=== PATIENT | female | born 1970 | race American Indian/Alaskan Native ===

== ENCOUNTER 2018-06-25 12:20 | Emergency (ER) | payer OTHER ==
[2018-06-25 12:31] VITALS: BMI 27.4
[2018-06-25 12:39] VITALS: RESP 18
--- NOTE | 2018-06-25 13:12 | ED PDOC ---
Arrival/HPI - General Chief Complaint: Flu-like Symptoms Time Seen by Provider: 06/25/18 12:39 Historian: Patient - History of Present Illness Narrative History of Present Illness (Text): 06/25/18 13:55 47yr old female presents today with cough, nasal congestion, bodyaches, fevers/chills, sore throat x 2 days. pt states cough is productive with green/yellow sputum. pt denies cp or sob. no dizziness or weakness. no abdominal pain. no vomiting/diarrhea. no medications have been taken at home. no other complaints. Past Medical History - Provider Review Nursing Documentation Reviewed: Yes - Travel History Have you recently traveled outside [place] w/in the past 3 mons?: No - Pulmonary Hx Asthma: Yes - Psychiatric Hx Substance Use: No - Surgical History Other/Comment: partial hysterectomy - Anesthesia Hx Anesthesia: Yes Family/Social History - Physician Review Nursing Documentation Reviewed: Yes Family/Social History: Unknown Family HX Smoking Status: Never Smoked Hx Alcohol Use: Yes Frequency of alcohol use: Socially Hx Substance Use: No Allergies/Home Meds Allergies/Adverse Reactions: Allergies shellfish derived Allergy (Verified 06/25/18 12:31) ANAPHYLAXIS Review of Systems - Review of Systems Constitutional: Fatigue, Fevers, Other (bodyaches) ENT: Sore Throat, Sinus Congestion Respiratory: Cough, Sputum. absent: SOB Cardiovascular: absent: Chest Pain, Palpitations Gastrointestinal: absent: Abdominal Pain, Nausea, Vomiting Genitourinary Female: absent: Dysuria, Frequency Musculoskeletal: absent: Arthralgias, Back Pain Skin: absent: Rash, Pruritis Neurological: absent: Headache, Dizziness Psychiatric: absent: Anxiety, Depression, Suicidal Ideation Physical Exam Vital Signs Reviewed: Yes Vital Signs Temp Pulse Resp BP Pulse Ox 06/25/18 12:41 118/85 06/25/18 12:31 98.2 F 102 H 18 99 Temperature: Afebrile Blood Pressure: Normal Pulse: Tachycardic Respiratory Rate: Normal Appearance: Positive for: Well-Appearing, Non-Toxic, Comfortable Pain Distress: None Mental Status: Positive for: Alert and Oriented X 3 - Systems Exam Head: Present: Atraumatic Pupils: Present: PERRL Extroacular Muscles: Present: EOMI Conjunctiva: Present: Normal Ears: Present: Normal, NORMAL TM Mouth: Present: Moist Mucous Membranes, Normal Lips, Normal Tounge. No: Drooling, Trismus Pharnyx: Present: Normal. No: ERYTHEMA, EXUDATE, TONSILS ENLARGED, Peritonsilar Swelling, Uvular Deviation, Muffled/Hoarse Voice Nose (External): Present: Atraumatic Nose (Internal): Present: Normal Inspection Neck: Present: Normal Range of Motion, Trachea Midline. No: Lymphadenopathy Cardiovascular: Present: Regular Rate and Rhythm, Normal S1, S2. No: Murmurs Abdomen: No: Tenderness, Distention, Peritoneal Signs, Rebound, Guarding Upper Extremity: Present: Normal ROM Lower Extremity: Present: Normal ROM Neurological: Present: GCS=15, Speech Normal Skin: Present: Warm, Dry, Normal Color. No: Rashes Psychiatric: Present: Alert, Oriented x 3 Medical Decision Making ED Course and Treatment: 06/25/18 13:57 Patient is nontoxic well-appearing. C/o flu-like symptoms. tylenol PO rapid flu; negative rapid strep; negative cxr; left small pleural effusion Tamiflu po zithromax po Patient reassessment: Pt feeling better; vitals stable. discussed all results with patient. 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 I advised follow up with primary care physician within the next 2 days. I advi sed increase fluids and return if symptoms worsen persist or if new symptoms develop Patient verbalizes understanding of discharge instructions and need for immediate followup. all aspects of this case were discussed the attending of record. IMPRESSION; Flu like symptoms, pleural effusion Motrin one tablet every 6 hours as needed for pain/fever reduction Tamiflu: 1 capsule twice daily x 5 days zithromax daily x 4 days. Increase fluids Followup with primary care physician the next 2 days regarding pleural effusion on chest xray Return if symptoms worsen persist or if new symptoms develop: Continued high fevers, dizziness, weakness, chest pain or shortness of breath vomiting/diarrhea, or if any other concerning symptoms develop 06/25/18 15:00 Reassessment Condition: Re-examined, Improved - RAD Interpretation Radiology Orders: 06/25/18 12:53 CHEST TWO VIEWS (PA/LAT) [RAD] Stat - Medication Orders Current Medication Orders: Acetaminophen (Tylenol 325mg Tab) 975 mg PO STAT STA Stop: 06/25/18 12:54 Disposition/Present on Arrival - Present on Arrival Any Indicators Present on Arrival: No History of DVT/PE: No History of Uncontrolled Diabetes: No Urinary Catheter: No History of Decub. Ulcer: No History Surgical Site Infection Following: None - Disposition Have Diagnosis and Disposition been Completed?: Yes Diagnosis: Flu-like symptoms, Pleural effusion Disposition: HOME/ ROUTINE Disposition Time: 13:59 Patient Plan: Discharge Patient Problems: Current Active Problems Problem Status Onset Flu-like symptoms Acute Condition: GOOD Discharge Instructions (ExitCare): Pleural Effusion (DC), Cough, Adult (DC) Additional Instructions: Motrin one tablet every 6 hours as needed for pain/fever reduction Tamiflu: 1 capsule twice daily x 5 days zithromax daily x 4 days. Increase fluids Followup with primary care physician the next 2 days regarding pleural effusion on chest xray Return if symptoms worsen persist or if new symptoms develop: Continued high fevers, dizziness, weakness, chest pain or shortness of breath vomiting/diarrhea, or if any other concerning symptoms develop Prescriptions: Azithromycin [Zithromax] 250 mg PO DAILY #4 tab Fluticasone Nasal [Flonase] 2 spr NS DAILY #1 spr Ibuprofen [Motrin] 600 mg PO Q6H PRN #20 tab PRN Reason: pain/fever reduction Oseltamivir Cap [Tamiflu] 75 mg PO BID #10 cap Referrals: Taryn Arechiga MD [Primary Care Provider] - Follow up with primary Frankie Barbosa MD [Staff Provider] - Follow up with primary Forms: [facility] (Thai), WORK NOTE
[2018-06-25 13:49] LABS: INFLUENZA A B NEGATIVE FOR FLU A/B (NEGATIVE)
--- NOTE | 2018-06-25 14:44 | RAD ---
Date of service: 06/25/2018 HISTORY: cough/fever COMPARISON: No prior. TECHNIQUE: Chest PA and lateral views FINDINGS: LUNGS: No active pulmonary disease. PLEURA: Minimal left pleural effusion with blunting of the costophrenic angle CARDIOVASCULAR: No aortic atherosclerotic calcification present. Normal cardiac size. No pulmonary vascular congestion. OSSEOUS STRUCTURES: No significant abnormalities. VISUALIZED UPPER ABDOMEN: Normal. OTHER FINDINGS: None. IMPRESSION: Minimal left pleural effusion with blunting of the costophrenic angle
[2018-06-25 15:03] VITALS: BP 127/63; PULSE 84; TEMP 98.1; O2SAT 98
== END 2018-06-25 15:17 | disposition home or self-care (01) ==
LOC: ED 12:20
DX: J11.1 Influenza due to unidentified influenza virus with other respiratory manifestations (principal); J90 Pleural effusion, not elsewhere classified; J45.909 Unspecified asthma, uncomplicated